=== PATIENT | female | born 1985 | race Caucasian/White ===

== ENCOUNTER 2020-10-12 14:14 | Emergency (ER) | payer OTHER, SELFPAY ==
[2020-10-12 14:20] VITALS: BP 145/103; PULSE 72; RESP 16; TEMP 36.6; O2SAT 99; BMI 28.3
--- NOTE | 2020-10-12 14:37 | ED_ITS ---
HPI - Headache General: Chief Complaint: Headache Stated Complaint: sob, cough,muscle,n/v Time Seen by Provider: 10/12/20 14:25 Source: patient Mode of arrival: ambulatory Limitations: no limitations History of Present Illness: HPI Narrative: 35-year-old female states over the last 2 to 3 days she has had generalized body aches with a mild headache along with cough. She states that she is also felt weak and generally ill. She states she had multiple sick contacts including her mother who tested positive for Covid 1 week ago. She denies any vomiting but has had some diarrhea. Denies any shortness of breath. She is in no distress and well-appearing here. Associated symptoms: Deny chest pain, nausea, rash or vomiting Review of Systems Const: Reports: chills and body aches Eyes: Denies: blurry vision or eye discomfort ENMT: Denies: throat pain or dental pain Card: Denies: chest pain Resp: Reports: non-productive cough GI: Denies: abdominal pain, nausea, vomiting or diarrhea : Denies: dysuria Musc: Denies: neck pain or back pain Skin/Breast: Denies: rash Neuro: Reports: headache(s) Psych: Denies: depression [place]/Lymph: Denies: easy bruising All/Imm: Denies: urticaria Physical Exam Const: COMMON NORMALS: no acute distress, patient oriented x3 and healthy appearing HENMT: COMMON NORMALS: normocephalic and atraumatic HEAD & SCALP: normocephalic and atraumatic Eye: COMMON NORMALS: Equal, round and reactive pupils present and EOMs intact bilaterally PUPIL: Yes Equal, round and reactive pupils present Neck/C-Spine: COMMON NORMALS: full ROM, supple and no meningeal signs Chest: COMMONS NORMALS: normal inspection of the chest and normal palpation of entire chest wall Resp: COMMON NORMALS: normal respiratory effort, No retractions, No use of accessory muscles and clear to auscultation bilaterally AUSCULTATION: clear to auscultation bilaterally Cardio: COMMON NORMALS: regular rate, regular rhythm and No murmurs present (Cardio) RATE: regular rate RHYTHM: regular rhythm GI: COMMON NORMALS: Normal to inspection, nondistended, normoactive bowel sounds present, Soft to palpation, non-tender and no masses PALPATION: Yes Soft to palpation Extremity: COMMON NORMALS: normal to inspection and full ROM Neuro: COMMON NORMALS: patient oriented x3, moves all extremities and no focal motor deficits MENINGEAL SIGNS: Yes no meningeal signs Psych: COMMON NORMALS: mental status grossly normal, Normal thought process present and cooperative THOUGHT PROCESS: Normal thought process present Skin: COMMON NORMALS: no rashes or lesions noted and no wounds GENERAL SKIN EXAM: no rashes or lesions noted Course Vital Signs: Vital signs: Vital Signs Temperature 97.9 F 10/12/20 14:20 Pulse Rate 72 10/12/20 14:20 Respiratory Rate 16 10/12/20 14:20 Blood Pressure 145/103 10/12/20 14:20 Pulse Oximetry 99 10/12/20 14:20 MDM - Headache MDM Narrative: Medical decision making narrative: Patient presents here with multiple complaints with concern of possible COVID-19 infection. Patient has not received in respiratory distress. She has no signs of meningitis. She feels improved here and will follow with a Covid swab. Patient is to return if worsening. Patient understands agrees to plan. Lab Data: Labs: Lab Results 10/12/20 Range/Units 14:30 Urine Color Straw (Yellow) Urine Appearance Clear (CLEAR) Urine pH 7 (5-7) Ur Specific Gravit y 1.005 (1.005-1.030) Urine Protein Neg (Negative) Urine Glucose (UA) Norm (Normal) Urine Ketones Negative (Negative) Urine Blood Neg (Negative) Urine Nitrate Negative (Negative) Urine Bilirubin Neg (Negative) Urine Urobilinogen Norm (Negative) mg/dL Ur Leukocyte Ina ase Negative (Negative) Urine RBC None (0-2) /hpf Urine WBC None (0-5) /hpf Ur Squamous Epith Cells Rare (0-5) /hpf Amorphous Sediment Not Reportable Urine Bacteria Trace (NONE) /hpf Discharge Plan Discharge Patient Disposition: Home Clinical Impression: Suspected 2019-nCoV infection Headache Qualifiers: Headache type: unspecified Condition: Stable Prescriptions: No Action Vicks NyQuil 7.5-60-30-1,000 mg/30 mL Liquid 30 ml PO QID PRN (Reason: SLEEP/PAIN) RF: 0 Pain Relief 8HR 650 mg Tablet Extended Release 650 mg PO Q8H PRN (Reason: Pain) RF: 0 Discharge Orders: Discharge Order (Routine); Ordered 10/12/20 Ordered By: Yanet Hollingsworth Referrals: Gary Garces MD [Primary Care Provider] - Discharge Diet: Advance as tolerated Discharge Activity: Resume usual activity Patient Instructions: Acute Headache (ED) Coding Level of Care Code ED [employer] Teacher for Chg Fwd Exam Comprehensive
[2020-10-12] MEDS: metoclopramide 5 mg/mL SDV 2 mL 10 MG IM (14:52)
[2020-10-12] MEDS: ketorolac 60 mg/2 mL INJ IM (14:52)
[2020-10-12] MEDS: diphenhydrAMINE 50 mg/mL SDV 1mL IM (14:52)
[2020-10-12 15:43] LABS: Add Urine Culture? No; Bacteria Urine TRACE /hpf; Bilirubin Urine Neg (Negative); Blood Urine Neg (Negative); Glucose Urine UA Norm (Normal); Ketones Urine Negative (Negative); Leukocyte Esterase Urine Negative (Negative); Nitrate Urine Negative (Negative); Protein Urine Neg (Negative); Specific Gravity, Urine 1.005 (1.005-1.030); Squamous Epithelial Cell Urine RARE /hpf (0-5); Urine Appearance Clear (CLEAR); Urine Color Straw (Yellow); Urobilinogen Urine Norm (Negative); pH Urine 7 (5-7)
[2020-10-12 16:02] VITALS: BP 140/97; PULSE 70; RESP 18; O2SAT 99
[2020-10-13 17:08] LABS: Quest SARS-CoV-2 RNA NOT DETECTED (NOT DETECTED)
== END 2020-10-12 16:05 | disposition home or self-care (01) ==
PROVIDERS: Emergency Medicine; Emergency Provider Emergency Medicine; PCP Family Medicine
DX: R51.9 Headache, unspecified (principal); Z20.828 Contact with and (suspected) exposure to other viral communicable diseases
CPT/HCPCS: 12345; 81001; 87635; 96372; 99281; 99283; J1200; J1885; J2765

== ENCOUNTER 2022-10-11 11:00 | Emergency (ER) | payer SELFPAY ==
[2022-10-11 11:16] VITALS: BP 126/95; PULSE 120; RESP 16; TEMP 36.7; O2SAT 99; BMI 28.3
--- NOTE | 2022-10-11 13:07 | W.ED.FEMALGU ---
HPI - Female Genitourinary General: Chief complaint: Urogenital-Female Stated complaint: n/v, urinating blood Time Seen by Provider: 10/11/22 12:59 History of Present Illness: Patient is a 37-year-old female comes to the ED with UTI symptoms. She states that about 2 days ago she started developing some blood in her urine and also some bladder pain especially when she urinates. Endorses having little bit of nausea and emesis over the weekend along with a mild fever. She states that today she is feeling better and able to keep p.o. fluids and crackers down. Denies any vaginal bleeding, vaginal pain or any vaginal lesions. Associated symptoms: Reports nausea; Deny abdominal pain, headache(s) or vaginal discharge Review of Systems Const: Reports: fever(s); Denies: chills or fatigue Eyes: Denies: change in vision or eye discomfort ENMT: Denies: throat pain, odynophagia, nasal discharge or nasal congestion Card: Denies: chest pain, palpitations, edema, swelling of feet/ankles, dyspnea on exertion or orthopnea Resp: Denies: dyspnea, productive cough or non-productive cough GI: Reports: nausea and vomiting; Denies: abdominal pain, diarrhea, constipation or hematochezia : Reports: dysuria and hematuria; Denies: flank pain, vaginal bleeding or vaginal discharge Musc: Denies: neck pain, back pain or extremity swelling Skin/Breast: Denies: rash or new lesions Neuro: Denies: headache(s), numbness in extremities or weakness in extremities [facility] ED PFSH: Medical History No pertinent past medical history Surgical History No pertinent past surgical history Physical Exam Const: COMMON NORMALS: no acute distress, patient oriented x3, healthy appearing and alert GENERAL APPEARANCE: cooperative and comfortable HENMT: COMMON NORMALS: normocephalic HEAD & SCALP: normocephalic MOUTH: Normal oral and palatal mucosa present THROAT: posterior oropharynx normal and uvula midline Neck/C-Spine: COMMON NORMALS: supple GENERAL: Yes normal visual inspection Resp: COMMON NORMALS: normal respiratory effort, No retractions, No use of accessory muscles and clear to auscultation bilaterally AUSCULTATION: clear to auscultation bilaterally Cardio: COMMON NORMALS: regular rate, regular rhythm, S1 normal heart sound present, S2 normal heart sound present, No gallops present (Cardio), No clicks present (Cardio), No murmurs present (Cardio) and Peripheral pulses 2+ throughout RATE: regular rate RHYTHM: regular rhythm HEART SOUNDS: S1 normal heart sound present and S2 normal heart sound present PERIPHERAL PULSES: Peripheral pulses 2+ throughout GI: COMMON NORMALS: Normal to inspection, nondistended, normoactive bowel sounds present, Soft to palpation, non-tender and no masses PALPATION: Yes Soft to palpation and Yes Bladder palpation abnormal : COMMON NORMALS: Yes no CVA tenderness BLADDER/KIDNEY EXAM: Yes no CVA tenderness and Yes Bladder palpation abnormal Bladder abnormal details: tender Back/Pelvis: COMMON NORMALS: no CVA tenderness Extremity: COMMON NORMALS: normal to inspection Neuro: COMMON NORMALS: patient oriented x3 SENSORIUM/ORIENTATION: Yes alert GAIT: Yes Normal gait present Skin: GENERAL SKIN EXAM: dry skin Course Vital Signs: Vital signs: Vital Signs Temperature 98.1 F 10/11/22 11:16 Pulse Rate 120 H 10/11/22 11:16 Respiratory Rate 16 10/11/22 11:16 Blood Pressure 126/95 10/11/22 11:16 Pulse Oximetry 99 10/11/22 11:16 [facility] - Female Medical Decision Making Patient is a 37-year-old female comes to the ED with UTI symptoms. Vitals are stable. Patient appears nontoxic and in no acute distress or pain. She does have some bladder tenderness but no CVA tenderness. UA shows many white blood cells, positive nitrates and bacteria. She is diagnosed with a UTI and discharged home with an antibiotic. Told to follow-up with her PCP within the next week for reevaluation. Return to ED precautions given. Patient understood and agreed with plan. Lab Data I reviewed the patient's lab results. Laboratory Results HCG, Qual Negative (Negative) 10/11/22 12:52 Urine Color Yellow (Yellow) 10/11/22 12:52 Urine Appearance Cloudy (CLEAR) A 10/11/22 12:52 Urine pH 5 (5-7) 10/11/22 12:52 Ur Specific [place] 1.020 (1.005-1.030) 10/11/22 12:52 Urine Protein 2+ (Negative) H 10/11/22 12:52 Urine Glucose (UA) Norm (Normal) 10/11/22 12:52 Urine Ketones 1+ (Negative) H 10/11/22 12:52 Urine Blood 3+ (Negative) H 10/11/22 12:52 Urine Nitrate Positive (Negative) H 10/11/22 12:52 Urine Bilirubin Neg (Negative) 10/11/22 12:52 Urine Urobilinogen 4 mg/dL (Negative) H 10/11/22 12:52 Ur Leukocyte Esterase 2+ (Negative) H 10/11/22 12:52 Urine RBC 5-10 /hpf (0-2) H 10/11/22 12:52 Urine WBC Too numerous to cnt /hpf (0-5) H 10/11/22 12:52 Ur Squamous Epith Cells Rare /hpf (0-5) 10/11/22 12:52 Amorphous Sediment Not Reportable 10/11/22 12:52 Urine Bacteria 2+ /hpf (NONE) H 10/11/22 12:52 Discharge Plan Discharge Patient Disposition: Home Clinical Impression: Urinary tract infection Qualifiers: Urinary tract infection type: acute cystitis Hematuria presence: with hematuria Qualified Code(s): N30.01 - Acute cystitis with hematuria Condition: Stable Prescriptions: New ondansetron 4 mg tablet,disintegrating 4 mg PO Q8H PRN (Reason: nausea and vomiting) Qty: 15 0RF cefdinir 300 mg capsule 300 mg PO BID 10 Days Qty: 20 0RF No Action Vicks NyQuil 7.5-60-30-1,000 mg/30 mL Liquid 30 ml PO QID PRN (Reason: SLEEP/PAIN) Pain Relief 8HR 650 mg Tablet Extended Release 650 mg PO Q8H PRN (Reason: Pain) Discharge Orders: Discharge ED (Routine); Ordered 10/11/22 Ordered By: Phi Gordillo Referrals: Gary Garces MD [Primary Care Provider] - Discharge Diet: Regular Discharge Activity: Increase activity as tolerated Patient Instructions: Urinary Tract Infection in Women (DC) Activity Restrictions/Additional Instructions: Follow-up with medical provider as directed in the next 5 to 7 days for reevaluation. Take medications as prescribed. Return to the ER or your medical provider if condition worsens. Please read and understand discharge instructions. Thank you for choosing [facility] for your healthcare needs today. Please realize this is an emergency room and that we are providing you with a medical screening exam and this may not be complete and all inclusive of all the testing and or work up that you may need to determine your ailment or severity of your illness. It is very important that you follow up as instructed or that you return to the Emergency Department should you have concerns or if your condition changes or worsens in any way. Coding Level of Care Code ED Apprentice Plant Attendant for Pablo Pearce Exam Comprehensive
[2022-10-11 13:17] LABS: HCG Qualitative Urine. Negative (Negative)
[2022-10-11 13:31] LABS: Blood Urine 3+ (Negative); Glucose Urine UA Norm (Normal); Ketones Urine 1+ (Negative); Nitrate Urine Positive (Negative); Protein Urine 2+ (Negative); Urine Appearance Cloudy (CLEAR); Urine Color Yellow (Yellow); pH Urine 5 (5-7)
[2022-10-11 13:32] LABS: Add Urine Microscopic? YES; Bilirubin Urine Neg (Negative); Leukocyte Esterase Urine 2+ (Negative); Urobilinogen Urine 4 mg/dL (Negative)
[2022-10-11 13:42] LABS: WBC Urine TOO NUMEROUS TO CNT /hpf (0-5)
[2022-10-11 13:43] LABS: Add Urine Culture? Yes; Bacteria Urine 2+ /hpf; Squamous Epithelial Cell Urine RARE /hpf (0-5)
== END 2022-10-11 14:06 | disposition home or self-care (01) ==
PROVIDERS: Emergency Medicine; Emergency Provider Physician Assistant; PCP Family Medicine
DX: N30.01 Acute cystitis with hematuria (principal)
CPT/HCPCS: 81001; 81025; 87077; 87086; 87186; 99283

== ENCOUNTER 2022-11-01 18:40 | Emergency (ER) | payer SELFPAY ==
[2022-11-01 18:49] VITALS: BP 136/94; PULSE 105; RESP 16; TEMP 36.4; O2SAT 98
[2022-11-01 19:48] LABS: Basophils % 0.5 %; Eosinophils # 0.2 10^3/uL (0.0-0.8); Eosinophils % 2.7 %; Hematocrit 39.2 % (37.0-47.0); Hemoglobin 13.6 g/dL (11.5-15.3); Lymphocytes # 3.4 10^3/uL (0.8-4.8); Lymphocytes % 41.7 %; Mean Corpuscular HGB Conc 34.7 g/dL (30.0-36.0); Mean Corpuscular Hemoglobin 31.9 pg (28.0-34.0); Mean Corpuscular Volume 91.8 fl (81-99); Mean Platelet Volume 9.8 fL (7.4-10.4); Monocytes # 0.6 10^3/uL (0.2-0.9); Monocytes % 6.9 %; Neutrophils # 3.89 10^3/uL (1.8-7.7); Nucleated Red Blood Cells % 0 %; Platelet Count 339 10^3/cmm (130-400); Red Blood Count 4.27 10^6/uL (4.1-5.3); Red Cell Distribution Width 11.8 % (12.1-15.1); White Blood Count 8.1 10^3/uL (4.0-10.0)
[2022-11-01 20:07] LABS: Alanine Aminotransferase 12 U/L (0-33); Alkaline Phosphatase 71 U/L (35-105); Aspartate Amino Transferase 12 U/L (0-32); Blood Urea Nitrogen 10 mg/dL (6-20); Calcium 9.3 mg/dL (8.5-10.5); Carbon Dioxide 25 mmol/L (22-29); Chloride 101 mmol/L (98-107); Globulin 3.3 g/dL (1.3-4.6); Glomerular Filtration Rate 113.1 mL/min (90-130); Glucose 79 mg/dL (65-115); Osmolality Calculated 280 mOsm/kg (285-295); Sodium 136 mmol/L (136-145); Total Protein 7.3 g/dL (6.6-8.7)
--- NOTE | 2022-11-01 20:14 | ED_ITS ---
HPI - Female Genitourinary General: Chief complaint: Urogenital-Female Stated complaint: UTI\Cant empty Bladder Time Seen by Provider: 11/01/22 19:01 History of Present Illness: 37-year-old female comes in today with complaints of urinary frequency and discomfort. Patient was treated for a urinary tract infection about 3 weeks ago. Patient appears nontoxic. Patient appears in mild to no pain. Patient has had urinary tract infection since having a hysterectomy. Associated symptoms: Reports nausea Review of Systems GI: Reports: nausea and vomiting : Reports: difficulty voiding PFSH ED PFSH: Medical History No pertinent past medical history Surgical History No pertinent past surgical history Physical Exam Const: COMMON NORMALS: alert HENMT: COMMON NORMALS: normocephalic HEAD & SCALP: normocephalic Resp: COMMON NORMALS: normal respiratory effort Cardio: COMMON NORMALS: regular rate RATE: regular rate : COMMON NORMALS: Yes no CVA tenderness BLADDER/KIDNEY EXAM: Yes no CVA tenderness Back/Pelvis: COMMON NORMALS: no CVA tenderness Neuro: SENSORIUM/ORIENTATION: Yes alert Skin: COMMON NORMALS: turgor normal GENERAL SKIN EXAM: turgor normal Course Vital Signs: Vital signs: Vital Signs Temperature 97.4 F L 11/01/22 21:00 Pulse Rate 88 11/01/22 21:00 Respiratory Rate 16 11/01/22 18:49 Blood Pressure 119/80 11/01/22 21:00 Pulse Oximetry 96 11/01/22 21:00 Oxygen Delivery [place] thod 11/01/22 21:00 MDM - Female Medical Decision Making 37-year-old female comes in today for complaints of urinary difficulty. On exam abdomen soft nontender. No CVA tenderness. Skin is warm and dry. Vital signs normal. Differential diagnosis includes cystitis, bladder spasms, interstitial cystitis, pyelonephritis. CBC CMP were unremarkable. Patient had large amount of white blood cells in her urine. Recommend treatment for urinary tract infection. Patient was given 1 g of Rocephin in the ER and started on cephalexin 500 mg twice a day for 7 days. Patient reported understanding of care plan need for follow-up or return to the ER. Lab Data 11/01/22 19:38 11/01/22 19:38 Laboratory Results WBC 8.1 10^3/uL (4.0-10.0) 11/01/22 19:38 RBC 4.27 10^6/uL (4.1-5.3) 11/01/22 19:38 Hgb 13.6 g/dL (11.5-15.3) 11/01/22 19:38 Hct 39.2 % (37.0-47.0) 11/01/22 19:38 MCV 91.8 fl (81-99) 11/01/22 19:38 MCH 31.9 pg (28.0-34.0) 11/01/22 19:38 MCHC 34.7 g/dL (30.0-36.0) 11/01/22 19:38 RDW 11.8 % (12.1-15.1) L 11/01/22 19:38 Plt Count 339 10^3/cmm (130-400) 11/01/22 19:38 MPV 9.8 fL (7.4-10.4) 11/01/22 19:38 Neut % (Auto) 48.0 % 11/01/22 19:38 Lymph % (Auto) 41.7 % 11/01/22 19:38 [place] % (Auto) 6.9 % 11/01/22 19:38 Eos % (Auto) 2.7 % 11/01/22 19:38 Baso % (Auto) 0.5 % 11/01/22 19:38 Neut # (Auto) 3.89 10^3/uL (1.8-7.7) 11/01/22 19:38 Lymph # (Auto) 3.4 10^3/uL (0.8-4.8) 11/01/22 19:38 [place] # (Auto) 0.6 10^3/uL (0.2-0.9) 11/01/22 19:38 Eos # (Auto) 0.2 10^3/uL (0.0-0.8) 11/01/22 19:38 Baso # (Auto) 0.0 10^3/uL (0.0-0.1) 11/01/22 19:38 Nucleated RBC % (auto) 0 % 11/01/22 19:38 Nucleated RBCs # 0.0 /100WBC 11/01/22 19:38 Sodium 136 mmol/L (136-145) 11/01/22 19:38 Potassium 4.0 mmol/L (3.5-5.1) 11/01/22 19:38 Chloride 101 mmol/L (98-107) 11/01/22 19:38 Carbon Dioxide 25 mmol/L (22-29) 11/01/22 19:38 Anion Gap 14.0 (5-19) 11/01/22 19:38 BUN 10 mg/dL (6-20) 11/01/22 19:38 Creatinine 0.6 mg/dL (0.5-0.9) 11/01/22 19:38 GFR Calculation 113.1 mL/min (90-130) 11/01/22 19:38 Glucose 79 mg/dL (65-115) 11/01/22 19:38 Calculated Osmolality 280 mOsm/kg (285-295) L 11/01/22 19:38 Calcium 9.3 mg/dL (8.5-10.5) 11/01/22 19:38 Total Bilirubin 1.0 mg/dL (0.15-1.2) 11/01/22 19:38 AST 12 U/L (0-32) 11/01/22 19:38 ALT 12 U/L (0-33) 11/01/22 19:38 Alkaline Phosphatase 71 U/L (35-105) 11/01/22 19:38 Total Protein 7.3 g/dL (6.6-8.7) 11/01/22 19:38 Albumin 4.0 g/dL (3.5-5.2) 11/01/22 19:38 Globulin 3.3 g/dL (1.3-4.6) 11/01/22 19:38 Urine Color Yellow (Yellow) 11/01/22 19:05 Urine Appearance Sl hazy (CLEAR) A 11/01/22 19:05 Urine pH 5 (5-7) 11/01/22 19:05 Ur Specific [place] 1.020 (1.005-1.030) 11/01/22 19:05 Urine Protein 1+ (Negative) H 11/01/22 19:05 Urine Glucose (UA) Norm (Normal) 11/01/22 19:05 Urine Ketones Negative (Negative) 11/01/22 19:05 Urine Blood 2+ (Negative) H 11/01/22 19:05 Urine Nitrate Negative (Negative) 11/01/22 19:05 Urine Bilirubin Neg (Negative) 11/01/22 19:05 Urine Urobilinogen Norm mg/dL (Negative) 11/01/22 19:05 Ur Leukocyte Esterase 1+ (Negative) H 11/01/22 19:05 Urine RBC 10-15 /hpf (0-2) H 11/01/22 19:05 Urine WBC Too numerous to cnt /hpf (0-5) H 11/01/22 19:05 Ur Squamous Epith Cells 0-4 /hpf (0-5) H 11/01/22 19:05 Amorphous Sediment Not Reportable 11/01/22 19:05 Urine Bacteria 2+ /hpf (NONE) H 11/01/22 19:05 Urine HCG, Qual Negative (Negative) 11/01/22 19:05 Discharge Plan Discharge Patient Disposition: Home Clinical Impression: UTI (urinary tract infection) due to Enterococcus Condition: Stable Prescriptions: New cephalexin 500 mg capsule 500 mg PO TID 7 Days Qty: 21 0RF Diflucan 150 mg tablet 150 mg PO DAILY Qty: 1 1RF Rx Instructions: administer on day 1 of therapy No Action Vicks NyQuil 7.5-60-30-1,000 mg/30 mL Liquid 30 ml PO QID PRN (Reason: SLEEP/PAIN) Pain Relief 8HR 650 mg Tablet Extended Release 650 mg PO Q8H PRN (Reason: Pain) ondansetron 4 mg tablet,disintegrating 4 mg PO Q8H PRN (Reason: nausea and vomiting) Qty: 15 0RF Discharge Orders: Discharge ED (Routine); Ordered 11/01/22 Ordered By: Denzel Tavarez Referrals: Gary Garces MD [Primary Care Provider] - Discharge Diet: Usual diet Discharge Activity: Increase activity as tolerated Patient Instructions: Urinary Tract Infection in Women (ED) Activity Restrictions/Additional Instructions: Drink plenty of water. Take medications as directed. Use cephalexin 500 mg 3 times a day for the next 7 days. Take Diflucan at the end of the antibiotic for yeast infection. Follow-up with primary care in 1 week for recheck of urine. Return to ED for new concerns. Coding Level of Care Code ED Tile Layer Helper for [place] Fwd Exam Detailed
[2022-11-01 21:00] VITALS: BP 119/80; PULSE 88; TEMP 36.3; O2SAT 96
[2022-11-01 21:41] LABS: Urine Appearance SL Hazy (CLEAR); Urine Color Yellow (Yellow)
[2022-11-01 21:42] LABS: Add Urine Culture? Yes; Add Urine Microscopic? YES; Bacteria Urine 2+ /hpf; Bilirubin Urine Neg (Negative); Blood Urine 2+ (Negative); Glucose Urine UA Norm (Normal); Ketones Urine Negative (Negative); Leukocyte Esterase Urine 1+ (Negative); Nitrate Urine Negative (Negative); Protein Urine 1+ (Negative); Squamous Epithelial Cell Urine 0-4 /hpf (0-5); Urobilinogen Urine Norm (Negative); WBC Urine TOO NUMEROUS TO CNT /hpf (0-5); pH Urine 5 (5-7)
[2022-11-01] MEDS: cefTRIAXone 1,000 MG in lidocaine 1% 2.1 ML 2.1 MG IM (22:00)
--- NOTE | 2022-11-02 10:28 | DCPLANNER ---
ecommerce manager had message to speak with patient about getting established with a primary care physician. ecommerce manager unable to speak with patient at this time.
== END 2022-11-01 22:03 | disposition home or self-care (01) ==
PROVIDERS: Emergency Provider Nurse Practitioner Family; PCP Family Medicine
DX: N39.0 Urinary tract infection, site not specified (principal); B95.2 Enterococcus as the cause of diseases classified elsewhere
CPT/HCPCS: 80053; 81001; 81025; 85025; 87077; 87086; 87186; 96372; 99284; J0696

== ENCOUNTER 2023-02-23 09:10 | Emergency (ER) | payer SELFPAY ==
[2023-02-23 09:18] VITALS: BP 132/62; PULSE 73; TEMP 36.7; O2SAT 98; BMI 27.9
[2023-02-23] MEDS: diphenhydrAMINE 50 mg Capsule PO (09:34)
--- NOTE | 2023-02-23 09:39 | ED_ITS ---
HPI - General Adult General: Chief complaint: General Medical Stated complaint: Hives on face, hands, and arms Time Seen by Provider: 02/23/23 09:14 History of Present Illness: Patient is a 37-year-old female who comes to the ED with rash. Patient's symptoms started approximately 3 days ago. Patient's rash is red, raised bumps that are itchy. Rash first appeared on hands bilaterally and now has started moving up her arms and onto her face. Denies any known allergies. Denies any changes in soaps, lotions or detergents. She denies any lip or tongue swelling, shortness of breath, throat tightening, nausea/vomiting or diarrhea. Associated symptoms: Reports rash; Deny chest pain, dyspnea, headache(s), nausea, palpitations or vomiting Review of Systems Const: Denies: fever(s), chills or fatigue Eyes: Denies: change in vision or eye discomfort ENMT: Denies: throat pain, odynophagia, nasal discharge or nasal congestion Card: Denies: chest pain, palpitations, edema, swelling of feet/ankles, dyspnea on exertion or orthopnea Resp: Denies: dyspnea, productive cough or non-productive cough GI: Denies: abdominal pain, nausea, vomiting, diarrhea, constipation or hematochezia : Denies: flank pain, dysuria or hematuria Musc: Denies: neck pain, back pain or extremity swelling Skin/Breast: Reports: rash; Denies: new lesions Neuro: Denies: headache(s), numbness in extremities or weakness in extremities PFS ED PFSH: Medical History No pertinent past medical history Surgical History No pertinent past surgical history Physical Exam Const: COMMON NORMALS: no acute distress, patient oriented x3 and alert HENMT: COMMON NORMALS: normocephalic HEAD & SCALP: normocephalic MOUTH: Normal oral and palatal mucosa present, lip normal and tongue normal THROAT: posterior oropharynx normal and uvula midline Neck/C-Spine: COMMON NORMALS: supple GENERAL: Yes normal visual inspection Resp: COMMON NORMALS: normal respiratory effort, No retractions, No use of accessory muscles and clear to auscultation bilaterally AUSCULTATION: clear to auscultation bilaterally Cardio: COMMON NORMALS: regular rate, regular rhythm, S1 normal heart sound present, S2 normal heart sound present, No gallops present (Cardio), No clicks present (Cardio), No murmurs present (Cardio) and Peripheral pulses 2+ throughout RATE: regular rate RHYTHM: regular rhythm HEART SOUNDS: S1 normal heart sound present and S2 normal heart sound present PERIPHERAL PULSES: Peripheral pulses 2+ throughout GI: COMMON NORMALS: Normal to inspection, nondistended, normoactive bowel sounds present, Soft to palpation, non-tender and no masses PALPATION: Yes Soft to palpation : COMMON NORMALS: Yes no CVA tenderness BLADDER/KIDNEY EXAM: Yes no CVA tenderness Back/Pelvis: COMMON NORMALS: no CVA tenderness Extremity: COMMON NORMALS: normal to inspection Neuro: COMMON NORMALS: patient oriented x3 SENSORIUM/ORIENTATION: Yes alert GAIT: Yes Normal gait present Skin: NARRATIVE SKIN EXAM: Patient has erythemic and raised maculopapular rash that appears to be hives on bilateral hands and arms and face. Course Vital Signs: Vital signs: Vital Signs Temperature 98.0 F 02/23/23 09:18 Pulse Rate 73 02/23/23 09:18 Respiratory Rate 14 02/23/23 10:14 Blood Pressure 132/62 02/23/23 09:18 Pulse Oximetry 98 02/23/23 09:18 Oxygen Delivery Me thod 02/23/23 09:18 [facility] - General Adult Medical Decision Making Patient is a 37-year-old female who comes to the ED with rash. Patient's symptoms started approximately 3 days ago. Patient's rash is red, raised bumps that are itchy. Rash first appeared on hands bilaterally and now has started moving up her arms and onto her face. Denies any known allergies. Denies any changes in soaps, lotions or detergents. She denies any lip or tongue swelling, shortness of breath, throat tightening, nausea/vomiting or diarrhea. Vitals are stable. Exam shows a patient in no acute distress or pain and no lip or tongue swelling seen. Patient has erythemic and raised maculopapular rash that appears to be hives on bilateral hands and arms and face. Patient was given dose of Benadryl and Solu-Medrol here in the ED. She is diagnosed with urticaria and discharged home with a prescription for prednisone and triamcinolone cream. Told to follow-up with her PCP in the next week for reevaluation. Return to ED precautions given. Patient understood and agreed with plan. Discharge Plan Discharge Patient Disposition: Home Clinical Impression: Urticaria of unknown origin Condition: Stable Prescriptions: New prednisone 20 mg tablet 20 mg PO BID 3 Days Qty: 6 0RF triamcinolone acetonide 0.1 % cream 1 applic topical BID PRN (Reason: rash) Qty: 80 0RF No Action Vicks NyQuil 7.5-60-30-1,000 mg/30 mL Liquid 30 ml PO QID PRN (Reason: SLEEP/PAIN) Pain Relief 8HR 650 mg Tablet Extended Release 650 mg PO Q8H PRN (Reason: Pain) ondansetron 4 mg tablet,disintegrating 4 mg PO Q8H PRN (Reason: nausea and vomiting) Qty: 15 0RF Diflucan 150 mg tablet 150 mg PO DAILY Qty: 1 1RF Rx Instructions: administer on day 1 of therapy Discharge Orders: Discharge ED (Routine); Ordered 02/23/23 Ordered By: Phi Gordillo Discharge Diet: Regular Discharge Activity: Increase activity as tolerated Activity Restrictions/Additional Instructions: Follow-up with medical provider as directed. Take medications as prescribed. Return to the ER or your medical provider if condition worsens. Please read and understand discharge instructions. Thank you for choosing [facility] for your healthcare needs today. Please realize this is an emergency room and that we are providing you with a medical screening exam and this may not be complete and all inclusive of all the testing and or work up that you may need to determine your ailment or severity of your illness. It is very important that you follow up as instructed or that you return to the Emergency Department should you have concerns or if your condition changes or worsens in any way. Coding Level of Care Code ED Bullet Assembly Press Setter Operator for Pablo Pearce
[2023-02-23 10:14] VITALS: RESP 14
== END 2023-02-23 10:17 | disposition home or self-care (01) ==
PROVIDERS: Emergency Provider Physician Assistant
DX: L50.9 Urticaria, unspecified (principal)
CPT/HCPCS: 96372; 99284; J2930; Q0163

== ENCOUNTER 2025-04-15 09:42 | Emergency (ER) | payer MEDICAID, SELFPAY ==
[2025-04-15 09:46] VITALS: BP 119/77; PULSE 101; TEMP 36.8; O2SAT 95
[2025-04-15 11:06] LABS: Basophils # 0.1 10^3/uL (0.0-0.1); Basophils % 0.9 %; Eosinophils # 0.2 10^3/uL (0.0-0.8); Eosinophils % 4.1 %; Hematocrit 40.4 % (36-47); Lymphocytes # 2.2 10^3/uL (0.8-4.8); Lymphocytes % 37.5 %; Mean Corpuscular HGB Conc 33.4 g/dL (30-55); Mean Corpuscular Hemoglobin 31.6 pg (27-33); Mean Corpuscular Volume 94.6 fl (85-98); Mean Platelet Volume 10.8 fL (7.4-10.4); Monocytes # 0.5 10^3/uL (0.2-0.9); Monocytes % 7.8 %; Neutrophils # 2.91 10^3/uL (1.8-7.7); Neutrophils % 49.5 %; Nucleated Red Blood Cells % 0 %; Platelet Count 327 10^3/cmm (157-399); Red Blood Count 4.27 10^6/uL (3.85-5.65); White Blood Count 5.87 10^3/uL (3.29-11.43)
[2025-04-15 11:23] LABS: HCG, Serum Qual Negative (Negative)
[2025-04-15 11:25] LABS: Alanine Aminotransferase 11 U/L (0-33); Albumin Level 4.2 g/dL (3.5-5.2); Alkaline Phosphatase 64 U/L (35-105); Anion Gap 14.6 (5-19); Aspartate Amino Transferase 11 U/L (0-32); Blood Urea Nitrogen 9 mg/dL (6-20); Carbon Dioxide 23 mmol/L (22-29); Chloride 107 mmol/L (98-107); Creatinine Clr Calc Pharmacy 107.9573; Globulin 2.9 g/dL (1.3-4.6); Glomerular Filtration Rate 93.6 mL/min (90-130); Glucose 75 mg/dL (65-115); Osmolality Calculated 287 mOsm/kg (285-295); Potassium 4.6 mmol/L (3.5-5.1); Sodium 140 mmol/L (136-145); Total Bilirubin 0.7 mg/dL (0.15-1.2); Total Protein 7.1 g/dL (6.6-8.7)
--- NOTE | 2025-04-15 11:34 | ED_ITS ---
HPI - Female Genitourinary 2 General: Chief complaint: Urogenital-Female Stated complaint: numbness in limbs, abd pain, trouble urinating Time Seen by Provider: 04/15/25 11:10 Source: patient Mode of arrival: ambulatory Limitations: no limitations History of Present Illness: 39-year-old female is here with multiple complaints are mainly states she has been having dysuria and feeling of hard time urinating over the last 2 to 3 days. States that also for months she has had numbness that goes on and off having some numbness to her right hand states she has headaches no headache currently states that 2 days ago she had an episode of vomiting and felt like she was in a pass out but feels improved currently. Associated symptoms: Reports headache(s) and nausea; Deny abdominal pain Related Data Previous Rx's ?Medication ?Instructions ?Recorded fluoxetine 40 mg capsule (Prozac) 40 mg PO DAILY #30 c aps 12/17/24 trazodone 50 mg tablet 100 mg (2 x 50 mg) PO .HS AK N 12/17/24 insomnia #60 tabs cephalexin 500 mg capsule 500 mg PO TID 7 days #21 cap s 04/15/25 Allergies Allergy/AdvReac Type Severity Reaction Status Date / Time No Known Allergies Allergy Verified 04/15/25 09:52 Review of Systems 2 Const: Denies: fever(s), chills, body aches or change in appetite Eyes: Denies: blurry vision or eye discomfort ENMT: Denies: throat pain or dental pain Card: Denies: chest pain Resp: Denies: dyspnea GI: Reports: nausea and vomiting; Denies: abdominal pain or diarrhea : Reports: difficulty voiding and dysuria Musc: Denies: neck pain or back pain Skin/Breast: Denies: rash Neuro: Reports: headache(s) PFSH ED 2 PFSH: Medical History Psychiatric care No pertinent past medical history Surgical History No pertinent past surgical history Physical Exam 2 Const: COMMON NORMALS: no acute distress, patient oriented x3 and healthy appearing HENMT: COMMON NORMALS: normocephalic and atraumatic HEAD & SCALP: n ormocephalic and atraumatic Eye: COMMON NORMALS: conjunctivae normal CONJUNCTIVA: Yes conjunctivae normal Neck/C-Spine: COMMON NORMALS: full ROM and supple Chest: COMMONS NORMALS: normal inspection of the chest Resp: COMMON NORMALS: normal respiratory effort, No retractions, No use of accessory muscles and clear to auscultation bilaterally AUSCULTATION: clear to auscultation bilaterally Cardio: COMMON NORMALS: regular rate, regular rhythm and No murmurs present (Cardio) RATE: regular rate RHYTHM: regular rhythm GI: COMMON NORMALS: Normal to inspection, nondistended, normoactive bowel sounds present, Soft to palpation, non-tender and no masses PALPATION: Yes Soft to palpation Extremity: COMMON NORMALS: normal to inspection and full ROM Neuro: COMMON NORMALS: patient oriented x3, moves all extremities and no focal motor deficits Psych: COMMON NORMALS: mental status grossly normal, Normal thought process present and cooperative THOUGHT PROCESS: Normal thought process present Skin: COMMON NORMALS: no rashes or lesions noted and no wounds GENERAL SKIN EXAM: no rashes or lesions noted Course 2 Vital Signs: Vital signs: Vital Signs Temperature 98.3 F 04/15/25 09:46 Pulse Rate 77 04/15/25 11:41 Respiratory Rate 16 04/15/25 11:41 Blood Pressure 118/80 04/15/25 11:41 Pulse Oximetry 97 04/15/25 11:41 Oxygen Delivery Me thod Room Air 04/15/25 09:46 MDM - Female Medical Decision Making Patient presents here with dysuria likely has UTI blood work is otherwise normal we will start her on antibiotics follow-up PCP return if worsening. Medical Records I reviewed the patient's medical records. Lab Data I reviewed the patient's lab results. 04/15/25 10:29 04/15/25 10:29 Laboratory Results WBC 5.87 10^3/uL (3.29-11.43) 04/15/25 10:29 RBC 4.27 10^6/uL (3.85-5.65) 04/15/25 10:29 Hgb 13.50 g/dL (11.27-16.99) 04/15/25 10:29 Hct 40.4 % (36-47) 04/15/25 10:29 MCV 94.6 fl (85-98) 04/15/25 10:29 MCH 31.6 pg (27-33) 04/15/25 10: MCHC 33.4 g/dL (30-55) 04/15/25 10: RDW 12.0 % (12.1-15.1) L 04/15/25 10: Plt Count 327 10^3/cmm (157-399) 04/15/25 10: MPV 10.8 fL (7.4-10.4) H 04/15/25 10: Neut % (Auto) 49.5 % 04/15/25 10:29 Lymph % (Auto) 37.5 % 04/15/25 10: [place] % (Auto) 7.8 % 04/15/25 10: Eos % (Auto) 4.1 % 04/15/25 10: Baso % (Auto) 0.9 % 04/15/25 10: Neut # (Auto) 2.91 10^3/uL (1.8-7.7) 04/15/25 10: Lymph # (Auto) 2.2 10^3/uL (0.8-4.8) 04/15/25 10:29 [place] # (Auto) 0.5 10^3/uL (0.2-0.9) 04/15/25 10: Eos # (Auto) 0.2 10^3/uL (0.0-0.8) 04/15/25 10: Baso # (Auto) 0.1 10^3/uL (0.0-0.1) 04/15/25 10: Nucleated RBC % (auto) 0 % 04/15/25 10: Nucleated RBCs # 0.0 /100WBC 04/15/25 10:29 Sodium 140 mmol/L (136-145) 04/15/25 10: Potassium 4.6 mmol/L (3.5-5.1) 04/15/25 10: Chloride 107 mmol/L (98-107) 04/15/25 10: Carbon Dioxide 23 mmol/L (22-29) 04/15/25 10: Anion Gap 14.6 (5-19) 04/15/25 10: BUN 9 mg/dL (6-20) 04/15/25 10: Creatinine 0.7 mg/dL (0.5-0.9) 04/15/25 10:29 GFR Calculation 93.6 mL/min (90-130) 04/15/25 10:29 Glucose 75 mg/dL (65-115) 04/15/25 10:29 Calculated Osmolality 287 mOsm/kg (285-295) 04/15/25 10:29 Calcium 9.0 mg/dL (8.5-10.5) 04/15/25 10:29 Total Bilirubin 0.7 mg/dL (0.15-1.2) 04/15/25 10:29 AST 11 U/L (0-32) 04/15/25 10:29 ALT 11 U/L (0-33) 04/15/25 10:29 Alkaline Phosphatase 64 U/L (35-105) 04/15/25 10:29 Total Protein 7.1 g/dL (6.6-8.7) 04/15/25 10:29 Albumin 4.2 g/dL (3.5-5.2) 04/15/25 10: Globulin 2.9 g/dL (1.3-4.6) 04/15/25 10:29 HCG, Qual Negative (Negative) 04/15/25 10:29 Urine Color [place] (Yellow) A 04/15/25 10:10 Urine Appearance Slightly cloudy (CLEAR) 04/15/25 10:10 Urine pH TNP 04/15/25 10:10 Ur Specific [place] TNP 04/15/25 10:10 Urine Protein TNP 04/15/25 10:10 Urine Glucose (UA) TNP 04/15/25 10:10 Urine Ketones TNP 04/15/25 10:10 Urine Blood TNP 04/15/25 10:10 Urine Nitrate TNP 04/15/25 10:10 Urine Bilirubin TNP 04/15/25 10:10 Urine Urobilinogen TNP 04/15/25 10:10 Ur Leukocyte Esterase TNP 04/15/25 10:10 Urine RBC None /hpf (0-2) 04/15/25 10:10 Urine WBC 5-10 /hpf (0-5) H 04/15/25 10:10 Ur Squamous Epith Cells 0-4 /hpf (0-5) H 04/15/25 10:10 Amorphous Sediment Not Reportable 04/15/25 10:10 Urine Bacteria Trace /hpf (NONE) 04/15/25 10:10 No radiology studies performed this visit EKG Data EKG 1: I personally reviewed and interpreted this EKG as follows: EKG Data: 04/15/25 EKG interpretation time: 11:40 Interpretation: nsr hr [address] elevation qrs 75 qtc 392 Discharge Plan Discharge Patient Disposition: Home Clinical Impression: Dysuria Condition: Stable Prescriptions: New cephalexin 500 mg capsule 500 mg PO TID 7 Days Qty: 21 0RF No Action fluoxetine [Prozac] 40 mg capsule 40 mg PO DAILY Qty: 30 11RF trazodone 50 mg tablet 100 mg PO .HS PRN (Reason: insomnia) Qty: 60 11RF Discharge Orders: Discharge ED (Routine); Ordered 04/15/25 Ordered By: Yanet Hollingsworth Discharge Diet: Advance as tolerated Discharge Activity: Resume usual activity Patient Instructions: Dysuria (ED) Print Language: Qatari Coding Level of Care Code ED Program Engagement Director for Pablo Pearce
--- NOTE | 2025-04-15 11:34 | ECG_ITS ---
[facility] 2025-[facility]15 Pat Name: Marita Moreno Department: Room: Gender: Female Road Design Engineer: : 1985 Requested By: Yanet Hollingsworth Order Number: [id number] Manasa MD: Rico Perdue M.D. Measurements Intervals [place] Rate: 68 P: 67 VT: 176 QRS: 48 QRSD: 75 T: 54 QT: 374 QTc: 400 Interpretive Statements SINUS RHYTHM WITH SINUS ARRHYTHMIA No previous ECG available for comparison Electronically Signed On 04-16-2025 06:28:02 CDT by Rico Perdue M.D. [email or web address]
[2025-04-15 11:41] VITALS: BP 118/80; PULSE 77; RESP 16; O2SAT 97
[2025-04-15 11:47] LABS: Urine Appearance Slightly Cloudy (CLEAR); Urine Color Orange (Yellow)
[2025-04-15 11:48] LABS: Add Urine Microscopic? YES; UA Manual Slide Review YES
[2025-04-15 11:49] LABS: Add Urine Culture? No; Bacteria Urine TRACE /hpf; Squamous Epithelial Cell Urine 0-4 /hpf (0-5)
[2025-04-15 12:01] VITALS: BP 122/61; O2SAT 97
[2025-04-15 12:07] VITALS: BP 121/73; PULSE 74; RESP 18; O2SAT 96
== END 2025-04-15 12:08 | disposition home or self-care (01) ==
PROVIDERS: Emergency Provider Emergency Medicine
DX: R30.0 Dysuria (principal); I49.8 Other specified cardiac arrhythmias
CPT/HCPCS: 36415; 80053; 81001; 84703; 85025; 93005; 99284